=== PATIENT | female | born 1990 | race African-American/Black ===

== ENCOUNTER 2018-04-14 09:34 | Emergency (ER) | payer SELFPAY ==
[~2018-04-14] VITALS: Ht 162.6 cm; Wt 58.1 kg
[2018-04-14 09:38] VITALS: BP 124/75
[2018-04-14 10:05] LABS: BILIRUBIN,URINE NEGATIVE (NEG); CLARITY,URINE CLEAR; COLOR,URINE YELLOW; NITRITE,URINE NEGATIVE (NEG); PH,URINE 7.5; PROTEIN,URINE NEGATIVE (NEG-TRACE); UROBILINOGEN,URINE 0.2 mg/dL (0.2 mg/dL)
[2018-04-14 10:11] LABS: BACTERIA,URINE FEW /HPF (0-FEW); RBC,URINE OCC /HPF (0-2); SQUAMOUS EPITHELIAL CELL,UR FEW /LPF; WBC,URINE RARE /HPF (0-4)
--- NOTE | 2018-04-14 10:13 | PHYS DOC ---
Past Medical History Past Medical History: Asthma, Endometriosis, Migraines, Other Additional Past Medical Histor: CHRONIC ABD PAIN W/MENSTRUAL CYCLES Past Surgical History: Other Additional Past Surgical Histo: ENDOMETRIOSIS SURG Alcohol Use: None Drug Use: None Adult General Chief Complaint Chief Complaint: HEADACHE HPI HPI 27-year-old female with a history of endometriosis presenting to the emergency department today with a headache that is been gone on for one month. It is nonradiating. Her headache was not sudden in onset. She endorses being triggered by light this morning when the sun rise hit her eyes driving to work. She denies any fevers chills neck stiffness. Her headache is similar to previous migraines. Review of systems is negative for chest pain shortness of breath neck pain neck stiffness abdominal pain fevers or chills. Negative for numbness weakness or tingling. She reports normal speech and normal ambulation. All other review of systems is negative unless otherwise noted in history of present illness. ED course: 27-year-old female presenting with headache similar to previous headaches. On arrival she is afebrile with normal heart rate. She is satting well on room air. Blood pressure within normal limits. On examination she is well-appearing with a normal neurologic exam. Funduscopic exam shows no signs of papilledema. Normal range of motion of the neck. The patient was given IV fluids with Reglan. She specifically requested no Benadryl because she reports it makes her feel fidgety. After ordering this, the patient does not want any IV medications. I offered the patient oral ibuprofen. The patient has been examined and was not found to have an emergency medical condition. The patient was then discharged home in stable condition to follow up with their primary care physician over the next 2-3 days. They were to return if their symptoms worsened or if they were concerned for any reason. They were also instructed to return to the emergency department if they were unable to get the recommended and appropriate follow-up. [id number] discharge instructions and return precautions were given. Patient's questions were answered. Review of Systems Review of Systems SEE ABOVE. Allergies Allergies Allergies Coded Allergies Type Severity Reaction Last Updated Verified No Known Drug Allergies 06/17/14 No Physical Exam Physical Exam SEE ABOVE Constitutional: Well developed, well nourished, no acute distress, non-toxic appearance. HENT: Normocephalic, atraumatic, bilateral external ears normal, oropharynx moist, no oral exudates, nose normal. [] Eyes: PERRLA, EOMI, conjunctiva normal, no discharge. no papilledema on retinal exam. Neck: Normal range of motion, no tenderness, supple, no stridor. Negative Brudzinski's sign. Negative Kernig sign Cardiovascular:Heart rate regular rhythm, no murmur [] Lungs & Thorax: Bilateral breath sounds clear to auscultation Abdomen: Bowel sounds normal, soft, no tenderness, no masses, no pulsatile masses. [] Skin: Warm, dry, no erythema, no rash. Back: No tenderness, no CVA tenderness. [] Extremities: No tenderness, no cyanosis, no clubbing, ROM intact, no edema. [] Neurologic: Mental status: Awake oriented and alert x3 Cranial nerves: Extraocular movements intact, eyebrows fanny bilaterally, smile symmetric, uvula elevation nl, shoulder shrug intact bilaterally, tongue protrusion normal DTRs: 2+ Sensation: equal and normal in all extremities Strength: 5/5 in upper and lower extremities bilaterally Psychologic: Affect normal, judgement normal, mood normal. [] Current Patient Data Vital Signs Vital Signs Date Time Temp Pulse Resp B/P (MAP) Pulse Ox O2 Delivery O2 Flow Rate FiO2 04/14/18 09:38 98.1 85 20 124/75 (91) 100 Room Air 98.1 Lab Values Laboratory Tests Test 04/14/18 09:57 POC Urine HCG, Qualitative Hcg negative (Negative) EKG EKG [] Radiology/Procedures Radiology/Procedures [] Course & Med Decision Making Course & Med Decision Making Pertinent Labs and Imaging studies reviewed. (See chart for details) [] Dragon Disclaimer Dragon Disclaimer This electronic medical record was generated, in whole or in part, using a voice recognition dictation system. Departure Departure Impression: Primary Impression: Headache Disposition: 01 HOME, SELF-CARE Condition: STABLE Referrals: NO PCP (PCP) RICHIE MARTINEZ MD Patient Instructions: General Headache Without Cause, [id number] Additional Instructions: Thank you for allowing us to participate in your care today. Return to the emergency department you have any new or worsening symptoms, or if you are concerned for any reason. Return to emergency department if you have any new or concerning symptoms including but not limited to fever, chills, nausea, vomiting, intractable pain, any new rashes, chest pain, shortness of air , uncontrolled bleeding, difficulty breathing, and/or vision loss. Follow up with your primary care physician and a neurologist within 3 days. Call your Primary Doctor tomorrow and inform them of your visit today. If you do not have a primary care provider we are happy to provide you with a list of our primary care providers contact information. This condition should be evaluated by your primary care physician and any recommended consulting services for continued management within 2-3 days after discharge. If at any time, you are having difficulty getting into your primary care doctor or a specialist, return to the emergency department. VICTORINO MILLER MD Apr 14, 2018 10:13
[2018-04-14] MEDS ORDERED: IV NORMAL SALINE 1000ML BAG 1,000 ML IV ONE (10:15)
[2018-04-14] MEDS ORDERED: METOCLOPRAMIDE HCL 10 MG/2 ML VIAL. IV ONE (10:15)
[2018-04-14] MEDS ORDERED: IBUPROFEN 400 MG TABLET. PO ONE (10:30)
[2018-04-14] MEDS ORDERED: SUMAtriptan SUCCINATE 25 MG TABLET PO ONE (10:30)
== END 2018-04-14 11:03 | disposition home or self-care (01) ==
LOC: ER 09:34
DX: G43.909 Migraine, unspecified, not intractable, without status migrainosus (principal); J45.909 Unspecified asthma, uncomplicated; G89.29 Other chronic pain
CPT/HCPCS: 81001; 81025; 99283